=== PATIENT | female | born 1945 | race Caucasian/White ===

== ENCOUNTER 2020-03-14 08:04 | Outpatient (CLI) | payer MEDICARE, SELFPAY ==
[2020-03-14 08:22] LABS: Basophils Absolute Auto 0.04 K/mm3 (0.00-0.10); Basophils Percent Auto 0.5 % (0.0-1.0); Eosinophils Absolute Auto 0.11 K/mm3 (0.02-0.50); Eosinophils Percent Auto 1.5 % (1.0-6.0); Hematocrit 44.5 % (35.0-42.0); Hemoglobin 14.9 g/dL (11.7-13.8); Immature Granulocyte Absolute 0.04 K/mm3 (0.00-0.00); Immature Granulocyte Percent A 0.5 % (0.0-0.0); Lymphocytes Absolute Auto 2.51 K/mm3 (1.10-4.50); Lymphocytes Percent Auto 33.2 % (18.0-42.0); Mean Corpuscular HGB Conc 33.5 g/dL (32.0-36.0); Mean Corpuscular Hemoglobin 31.4 pg (27.0-31.0); Mean Corpuscular Volume 93.7 fL (78.0-102.0); Mean Platelet Volume 9.2 fl (9.2-11.8); Monocytes Absolute Auto 0.57 K/mm3 (0.10-0.90); Monocytes Percent Auto 7.5 % (2.0-11.0); Neutrophils Absolute Auto 4.3 K/mm3 (1.7-7.2); Neutrophils Percent Auto 56.8 % (50.0-70.0); Platelet Count Result 214 K/mm3 (150-420); Red Blood Count 4.75 M/mm3 (4.20-5.40); Red Cell Distribution Width 13.2 % (11.6-14.4); White Blood Count 7.6 K/mm3 (4.8-10.8)
[2020-03-14 08:31] LABS: Hemoglobin A1C 5.8 % (<5.7)
[2020-03-14 11:30] LABS: Alanine Aminotransferase 45 U/L (14-59); Albumin Level 3.4 g/dL (3.4-5.0); Alkaline Phosphatase 86 U/L (46-116); Anion Gap 12.1 mmol/L (7-16); Aspartate Amino Transferase 32 U/L (15-37); Bilirubin,Total 0.3 mg/dL (0.00-1.00); Blood Urea Nitrogen 22 mg/dL (7-18); Calcium 8.2 mg/dL (8.5-10.1); Carbon Dioxide 29 mmol/L (21-32); Chloride 105 mmol/L (98-108); Cholesterol 129 mg/dL (0-200); Estimated Glomerular Filt Rate 47; Glucose 97 mg/dL (70-99); HDL Direct 34 mg/dL (40-60); LDL Cholesterol Calculated 70 mg/dL (<130); Osmolality Calculated 297 mOsm/kg (285-295); Potassium 4.1 mmol/L (3.5-5.1); Sodium 142 mmol/L (136-145); Total Protein 6.8 g/dL (6.4-8.2); Triglycerides 125 mg/dL (0-150)
[2020-03-17 09:23] LABS: Vitamin D 25 Hydroxy 31 ng/mL (30-100)
== END 2020-03-14 08:05 | disposition home or self-care (01) ==
DX: E78.5 Hyperlipidemia, unspecified (principal); I10 Essential (primary) hypertension; D68.59 Other primary thrombophilia; R73.01 Impaired fasting glucose; I65.29 Occlusion and stenosis of unspecified carotid artery; E55.9 Vitamin D deficiency, unspecified
CPT/HCPCS: 36415; 80053; 80061; 82306; 83036; 84443; 85025